=== PATIENT | male | born 1990 | race Caucasian/White ===

== ENCOUNTER 2022-09-19 14:38 | Outpatient (REF) | payer OTHER, SELFPAY ==
--- NOTE | ~2022-09-19 | XR_ITS ---
EXAMINATION: XR CERVICAL SPINE CLINICAL INFORMATION: Cervical myelopathy. COMPARISON: None TECHNIQUE: Frontal, odontoid, bilateral oblique, lateral and swimmer's views are obtained. FINDINGS: Vertebral body heights are normal. There is mild reversal of the normal lordotic curvature. There is well-maintained alignment status-post C4-C5 anterior fusion and discectomy, with intact anterior Low Profile fixator device. No hardware failure or loosening is seen. The remaining disc spaces are well-maintained. No acute fracture or spondylolisthesis is seen. The posterior elements are intact. There is mild bilateral foraminal narrowing at C4-C5. There is no prevertebral soft tissue swelling. The dens and C7-T1 interface are normal. XR/XR cervical spine 4V IMPRESSION: 1. There is well-maintained alignment status-post C4-C5 anterior fusion and discectomy. No hardware failure or loosening is seen. 2. There is mild bilateral neural foraminal narrowing at C4-C5.
== END 2022-09-19 14:39 | disposition home or self-care (01) ==
LOC: HO.XRAY 14:38
PROVIDERS: Visit Provider Psychiatry & Neurology Neurology
DX: G95.9 Disease of spinal cord, unspecified (principal)
CPT/HCPCS: 72050